=== PATIENT | female | born 1995 | race Caucasian/White ===

== ENCOUNTER 2018-03-07 15:57 | Emergency (ER) | payer BC, SELFPAY ==
[2018-03-07 16:02] VITALS: BP 100/65; PULSE 96; RESP 20; TEMP 36.8; O2SAT 99
[2018-03-07 16:30] LABS: Add Manual Diff / Slide Review NO; Basophils Percent Auto 0.1 % (0-2); Hematocrit 36.7 % (36-46); Lymphocytes Percent Auto 6.6 % (25-40); Mean Corpuscular HGB Conc 32.8 % (30-36); Mean Corpuscular Hemoglobin 26.8 PG (26-34); Mean Corpuscular Volume 81.6 fL (80-100); Monocytes Percent Auto 5.2 % (3-14); Neutrophils Absolute Auto 11600 /uL (3000-5900); Neutrophils Percent Auto 88.1 % (50-75); Platelet Count 285 X10^3/uL (150-400); Red Blood Cell Count 4.49 X10^6/uL (4.0-5.2); Red Cell Distribution Width 18.3 % (11.6-14.8); White Blood Cell Count 13.2 X10^3/uL (4.5-11.0)
[2018-03-07] MEDS: ONDANSETRON 4 MG/2 ML INJ IV (16:40)
[2018-03-07] MEDS: SODIUM CHLORIDE 0.9% 1,000 ML 1000 ML IV (16:40)
[2018-03-07 16:49] LABS: Alanine Aminotransferase 41 IU/L (9-52); Albumin 3.4 g/dL (3.5-5.0); Albumin Globulin Ratio 1.1 (1.0-2.8); Alkaline Phosphatase 87 U/L (38-126); Aspartate Aminotransferase 44 IU/L (14-36); BUN Creatinine Ratio 15.7 (6-22); Bilirubin Total 0.3 mg/dL (0.2-1.3); Blood Urea Nitrogen 11 mg/dL (7-17); Calcium 8.6 mg/dL (8.4-10.2); Carbon Dioxide 27 mmol/L (22-32); Chloride 101 mmol/L (98-107); Estimated Glomerular Filt Rate > 60.0 mL/min (>60); Globulin 3.1 g/dL (1.7-4.1); Glucose 113 mg/dL (70-100); HEMOLYSIS < 15 (0-50); Lipase 25 U/L (23-300); Sodium 139 mmol/L (137-145); Total Protein 6.5 g/dL (6.3-8.2)
[2018-03-07 17:00] VITALS: BP 90/45; PULSE 74; RESP 14; O2SAT 98
[2018-03-07 18:00] VITALS: BP 98/51; PULSE 76; O2SAT 99
[2018-03-07 18:18] LABS: Bacteria Urine None Seen; WBC Urine None Seen (0-5/HPF)
[2018-03-07 19:00] LABS: Squamous Epithelial Cell Urine 0-1 /HPF
[2018-03-07 19:01] LABS: Culture Indicated Urine Cult Not Indicated; RBC Urine 0-1/HPF (0-5/HPF)
--- NOTE | 2018-03-07 19:11 | ED_ITS ---
HPI - Abdominal Pain <RAGHU Monique - Last Filed: 03/07/18 22:23> General Chief Complaint: Abdominal Pain Stated Complaint: N/V/D & recent [place] visit Time Seen by Provider: 03/07/18 16:00 History of Present Illness HPI narrative: 22-year-old female here for complaint of having nausea vomiting over the past couple of days. She denies any fevers or chills. No urinary symptoms. No flank pain. She denies any abdominal pain. Last bowel movement was earlier today and was normal. She denies any other concerns or complaints at this time. She denies being exposed to any other people that have similar symptoms. Related Data Previous Rx's Medication Instructions Recorded ondansetron [Zofran ODT] 8 mg PO TID PRN #9 tab 03/07/18 Allergies Allergy/AdvReac Type Severity Reaction Status Date / Time Milk Containing Products AdvReac Verified 03/07/18 16:05 Review of Systems <RAGHU Monique - Last Filed: 03/07/18 22:23> Constitutional Denies chills, Denies fever(s), Denies lethargy and Denies weakness Eyes Denies change in vision, Denies eye discharge, Denies irritation and Denies loss of vision ENT Ears, Nose, Mouth, and Throat: Denies change in voice, Denies neck pain and Denies sore throat Cardiovascular Denies chest pain, Denies irregular heart rhythm, Denies lightheadedness, Denies palpitations, Denies dyspnea, Denies dyspnea on exertion and Denies orthopnea Respiratory Denies cough, Denies dyspnea, Denies dyspnea on exertion and Denies wheezing Gastrointestinal Gastrointestinal: Reports vomiting Genitourinary Denies hematuria, Denies flank pain, Denies urinary incontinence and Denies urinary urgency Musculoskeletal Denies neck pain Integumentary/Breasts Denies pruritus, Denies erythema, Denies rash and Denies wounds Neurologic Denies confusion, Denies loss of vision and Denies weakness Psychiatric Denies anxiety, Denies confusion, Denies depression, Denies homicidal ideation and Denies suicidal ideation Endocrine Denies palpitations Hematologic/Lymphatic Denies easy bruising Allergic/Immunologic Denies wheezing Exam <RAGHU Monique - Last Filed: 03/07/18 22:23> Initial Vital Signs Initial Vital Signs: Vital Signs Temperature 98.2 F 07/09/18 16:02 Pulse Rate 96 H 03/07/18 16:02 Respiratory Rate 20 03/07/18 16:02 Blood Pressure 100/65 03/07/18 16:02 Pulse Oximetry 99 03/07/18 16:02 Const General: cooperative and well developed Nutritional Appearance: well nourished Orientation: alert, awake, oriented x3 and not confused HENMT Mouth: oral mucosae normal and moist mucous membranes Eyes Conjunctivae: conjunctivae normal Sclera: sclerae normal Pupils: PERRL EOM: EOM intact bilaterally Resp Effort & Inspection: normal respiratory effort, able to speak in complete sentences, no respiratory distress and no use of accessory muscles Auscultation: clear to auscultation bilaterally, no rales, no rhonchi and no wheezes Cardio Rate: regular rate Rhythm: regular rhythm Heart Sounds: no click, no gallops, no murmurs and no rubs GI Inspection: non-distended Palpation: soft, no hepatosplenomegaly, No guarding, No pulsatile mass and No tender Auscultation: normal bowel sounds General: No CVA tenderness Skin General: no rashes or lesions noted, No jaundice and No petechiae <Pato Hutchison DO - Last Filed: 03/08/18 07:21> Initial Vital Signs Initial Vital Signs: Vital Signs Temperature 98.2 F 03/07/18 16:02 Pulse Rate 96 H 03/07/18 16:02 Respiratory Rate 20 03/07/18 16:02 Blood Pressure 100/65 03/07/18 16:02 Pulse Oximetry 99 03/07/18 16:02 Course <RAGHU Monique - Last Filed: 03/07/18 22:23> Orders Ordered: Discontinued Medications Sodium Chloride (Normal Saline 0.9%) 1,000 mls @ 1,000 mls/hr IV BOLUS ONE Stop: 03/07/18 17:17 Last Infusion: 03/07/18 18:16 Dose: 0 mls/hr Admin: 03/07/18 16:40 Dose: 1,000 mls/hr Ondansetron HCl (Zofran) 4 mg IV NOW ONE Stop: 03/07/18 16:19 Last Admin: 03/07/18 16:40 Dose: 4 mg Vital Signs - 8 hr 03/07/18 16:02 07/09/18 17:00 03/07/18 18:00 Temperature 98.2 F Pulse Rate 96 H 74 76 Respiratory Rate 20 14 Blood Pressure 100/65 Blood Pressure [Left Arm] 90/45 L 98/51 L Pulse Oximetry 99 98 99 03/07/18 19:33 Temperature Pulse Rate 59 L Respiratory Rate 17 Blood Pressure 108/44 L Blood Pressure [Left Arm] Pulse Oximetry 98 <Pato Hutchison DO - Last Filed: 03/08/18 07:21> Orders Ordered: Discontinued Medications Sodium Chloride (Normal Saline 0.9%) 1,000 mls @ 1,000 mls/hr IV BOLUS ONE Stop: 03/07/18 17:17 Last Infusion: 03/07/18 18:16 Dose: 0 mls/hr Admin: 03/07/18 16:40 Dose: 1,000 mls/hr Ondansetron HCl (Zofran) 4 mg IV NOW ONE Stop: 03/07/18 16:19 Last Admin: 03/07/18 16:40 Dose: 4 mg Vital Signs - 8 hr 03/07/18 16:02 03/07/18 17:00 03/07/18 18:00 Temperature 98.2 F Pulse Rate 96 H 74 76 Respiratory Rate 20 14 Blood Pressure 100/65 Blood Pressure [Left Arm] 90/45 L 98/51 L Pulse Oximetry 99 98 99 03/07/18 19:33 Temperature Pulse Rate 59 L Respiratory Rate 17 Blood Pressure 108/44 L Blood Pressure [Left Arm] Pulse Oximetry 98 MDM - Abdominal Pain <RAGHU Monique - Last Filed: 03/07/18 22:23> Lab Data Result diagrams: 03/07/18 16:20 03/07/18 16:20 Lab Results 03/07/18 03/07/18 03/07/18 Range/Units 16:20 16:20 18:10 WBC 13.2 H (4.5-11.0) X10^3/uL RBC 4.49 (4.0-5.2) X10^6/uL Hgb 12.0 (12.0-16.0) g/dL Hct 36.7 (36-46) % MCV 81.6 (80-100) fL MCH 26.8 (26-34) PG MCHC 32.8 (30-36) % RDW 18.3 H (11.6-14.8) % Plt Count 285 (150-400) X10^3/uL Neut % (Auto) 88.1 H (50-75) % Lymph % (Auto) 6.6 L (25-40) % Mathews % (Auto) 5.2 (3-14) % Eos % (Auto) 0.0 L (2-4) % Baso % (Auto) 0.1 (0-2) % Neut # (Auto) 42705 H (3783-6369) /uL Sodium 139 (137-145) mmol/L Potassium 4.0 (3.4-5.1) mmol/L Chloride 101 (98-107) mmol/L Carbon Dioxide 27 (22-32) mmol/L BUN 11 (7-17) mg/dL Creatinine 0.70 (0.52-1.04) mg/dL Estimated GFR > 60.0 (>60) mL/min BUN/Creatinine Ratio 15.7 (6-22) Glucose 113 H (70-100) mg/dL Calcium 8.6 (8.4-10.2) mg/dL Total Bilirubin 0.3 (0.2-1.3) mg/dL AST 44 H (14-36) IU/L ALT 41 (9-52) IU/L Alkaline Phosphatase 87 (38-126) U/L Total Protein 6.5 (6.3-8.2) g/dL Albumin 3.4 L (3.5-5.0) g/dL Globulin 3.1 (1.7-4.1) g/dL Albumin/Globulin Ratio 1.1 (1.0-2.8) Lipase 25 (23-300) U/L Urine RBC 0-1/hpf (0-5/HPF) Urine WBC None seen (0-5/HPF) Ur Squamous Epith Cells 0-1 /hpf Urine Bacteria None seen (None) Ur Culture Indicated? Cult not indicated Micro UA Comment Not Reportable Point of care testing: Urine Dip Bedside Urine Glucose Negative Bedside Urine Bilirubin - Negative Bedside Urine Ketone - Negative Urine Specific Penrose 1.015 Bedside Urine Occult Blood +/- Bedside Urine pH 6.0 Bedside Urine Protein - Negative Bedside Urine Urobilinogen - Negative Bedside Urine Nitrite - Negative Bedside Urine Leukocytes - Negative Esterase MDM Narrative Medical decision making narrative: Normal exam no abdominal pain no flank pain. CBC shows elevated white count otherwise CBC and Chem panel and lipase were unremarkable. Urinalysis was negative for urinary tract infection. Urine was negative. Patient was given Zofran and fluids in the emergency room palpation felt better. Signs and symptoms presents as a viral illness. Follow up with primary care in the next several days for re-evaluation. She is prescribed Zofran to help with the nausea for any worsening symptoms return to the emergency room. <Pato Hutchison, - Last Filed: 03/08/18 07:21> Lab Data Lab Results 03/07/18 03/07/18 03/07/18 Range/Units 16:20 16:20 18:10 WBC 13.2 H (4.5-11.0) X10^3/uL RBC 4.49 (4.0-5.2) X10^6/uL Hgb 12.0 (12.0-16.0) g/dL Hct 36.7 (36-46) % MCV 81.6 (80-100) fL MCH 26.8 (26-34) PG MCHC 32.8 (30-36) % RDW 18.3 H (11.6-14.8) % Plt Count 285 (150-400) X10^3/uL Neut % (Auto) 88.1 H (50-75) % Lymph % (Auto) 6.6 L (25-40) % Mathews % (Auto) 5.2 (3-14) % Eos % (Auto) 0.0 L (2-4) % Baso % (Auto) 0.1 (0-2) % Neut # (Auto) 40002 H (7554-6834) /uL Sodium 139 (137-145) mmol/L Potassium 4.0 (3.4-5.1) mmol/L Chloride 101 (98-107) mmol/L Carbon Dioxide 27 (22-32) mmol/L BUN 11 (7-17) mg/dL Creatinine 0.70 (0.52-1.04) mg/dL Estimated GFR > 60.0 (>60) mL/min BUN/Creatinine Ratio 15.7 (6-22) Glucose 113 H (70-100) mg/dL Calcium 8.6 (8.4-10.2) mg/dL Total Bilirubin 0.3 (0.2-1.3) mg/dL AST 44 H (14-36) IU/L ALT 41 (9-52) IU/L Alkaline Phosphatase 87 (38-126) U/L Total Protein 6.5 (6.3-8.2) g/dL Albumin 3.4 L (3.5-5.0) g/dL Globulin 3.1 (1.7-4.1) g/dL Albumin/Globulin Ratio 1.1 (1.0-2.8) Lipase 25 (23-300) U/L Urine RBC 0-1/hpf (0-5/HPF) Urine WBC None seen (0-5/HPF) Ur Squamous Epith Cells 0-1 /hpf Urine Bacteria None seen (None) Ur Culture Indicated? Cult not indicated Micro UA Comment Not Reportable Point of care testing: Urine Dip Bedside Urine Glucose Negative Bedside Urine Bilirubin - Negative Bedside Urine Ketone - Negative Urine Specific Penrose 1.015 Bedside Urine Occult Blood +/- Bedside Urine pH 6.0 Bedside Urine Protein - Negative Bedside Urine Urobilinogen - Negative Bedside Urine Nitrite - Negative Bedside Urine Leukocytes - Negative Esterase Discharge Plan Departure Patient Disposition: Home, Self-Care Clinical Impression: Nausea & vomiting Discharge Date/Time: 03/07/18 19:35 Interventions: ED Discharge Assessment Last Done: 03/07/18 19:33 Instructions: DI for Vomiting -- Adult Activity Restrictions/Additional Instructions: Laboratory work shows elevated CRP white blood cell count otherwise is unremarkable. Signs and symptoms presents as a viral illness. Slowly advance diet as tolerated. Use Zofran as needed for nausea and vomiting. Follow-up in a clinic in the next few days for re-evaluation. For any worsening symptoms return to the emergency room. Prescriptions: New ondansetron [Zofran ODT] 4 mg tablet,disintegrating 8 mg PO TID PRN (Reason: nausea and vomiting) Qty: 9 RF: 0 Referrals: [facility] [Provider Group] <Pato Hutchison DO - Last Filed: 03/08/18 07:21> Cosign ED Attending Dona Attestation: I was available for consultation during this patient's emergency department encounter
[2018-03-07 19:33] VITALS: BP 108/44; PULSE 59; RESP 17; O2SAT 98
== END 2018-03-07 19:35 | disposition home or self-care (01) ==
PROVIDERS: Emergency Provider Nurse Practitioner Family
DX: R11.2 Nausea with vomiting, unspecified (principal)
CPT/HCPCS: 36591; 80053; 81003; 81015; 83690; 85025; 96361; 96374; 99283; 99284; J2405